=== PATIENT | female | born 1985 | race Caucasian/White ===

== ENCOUNTER 2016-11-10 21:42 | Inpatient (IN) | payer MEDICAID, OTHER ==
[~2016-11-10] VITALS: Ht 160 cm; Wt 52.2 kg
[2016-11-10 23:38] LABS: BASOPHILS % (AUTO) 0.1 % (0.0-2.0); EOSINOPHILS % (AUTO) 0.8 % (1.0-6.0); HEMATOCRIT 39.4 % (36-46); HEMOGLOBIN 12.9 g/dL (12.0-16.0); LYMPHOCYTES # (AUTO) 1.3 K/uL (1.0-4.8); LYMPHOCYTES % (AUTO) 11.2 % (22.0-44.0); MEAN CORPUSCULAR HEMOGLOBIN 30.5 pg (26.0-34.0); MEAN CORPUSCULAR HGB CONC 32.7 G/dL (31.0-37.0); MEAN CORPUSCULAR VOLUME 93 fL (80-100); MONOCYTES # (AUTO) 0.9 K/uL (0.1-1.0); MONOCYTES % (AUTO) 7.6 % (2.0-9.0); NEUTROPHILS # (AUTO) 9.2 K/uL (1.8-7.7); NEUTROPHILS % (AUTO) 80.3 % (40.0-70.0); PLATELET COUNT (AUTO) 363 K/uL (150-450); RED BLOOD CELL COUNT(AUTO) 4.22 MIL/uL (4.00-5.20); RED CELL DISTRIBUTION WIDTH 13.2 % (11.5-14.5); WHITE BLOOD COUNT (AUTO) 11.5 K/uL (4.5-11.0)
[2016-11-10] MEDS ORDERED: DiphenhydrAMINE HCL 50 MG/ML VIAL IM ONE (23:45)
[2016-11-10] MEDS ORDERED: LORazepam 2 MG/ML VIAL IM ONE (23:45)
[2016-11-10] MEDS ORDERED: HALOPERIDOL LACTATE 5 MG/ML VIAL IM ONE (23:45)
[2016-11-10 23:46] LABS: ANION GAP 10 mmol/L (8-16); CALCIUM, TOTAL 8.9 mg/dL (8.8-10.5); CARBON DIOXIDE 29 mmol/L (22-29); CHLORIDE 102 mmol/L (98-107); CREATININE 1.04 mg/dL (0.60-1.30); GLOMERULAR FILTR. RATE CALC 46 mL/min (>60); SODIUM SERUM 141 mmol/L (136-145); UREA NITROGEN, BLOOD 11 mg/dL (7-18)
[2016-11-10 23:51] LABS: ALANINE AMINOTRANSFERASE 34 U/L (12-78); ASPARTATE AMINOTRANSFERASE 36 U/L (15-37); BILIRUBIN,TOTAL 0.8 mg/dL (0.1-1.0); TOTAL PROTEIN, SERUM 7.5 g/dL (6.4-8.2)
[2016-11-11 04:14] LABS: APPEARANCE,URINE CLOUDY (CLEAR); GLUCOSE, URINE (UA) NEGATIVE (NEGATIVE); KETONES,URINE NEGATIVE (NEGATIVE); LEUKOCYTE ESTERASE ,URINE NEGATIVE (NEGATIVE); OCCULT BLOOD,URINE NEGATIVE (NEGATIVE); PROTEIN,URINE TRACE (NEGATIVE)
[2016-11-11 04:17] LABS: ADD UA MICROSCOPIC NO
[2016-11-11 04:45] LABS: CHOL/HDL RATIO 2.3 (3.9-5.7)
[2016-11-11 06:16] VITALS: BP 100/63
[2016-11-11 16:13] VITALS: BP 121/66
[2016-11-11] MEDS ORDERED: *CLINICAL-RX DOSING [ENTER DRUG IN COMMENTS] CLINICAL ONE (17:30)
[2016-11-12 07:05] VITALS: BP 125/78
[2016-11-12] MEDS: BENZTROPINE MESYLATE 0.5 MG TABLET PO SCH ×2 (08:16→16:34)
[2016-11-12] MEDS: HALOPERIDOL 5 MG TABLET PO SCH ×2 (08:16→16:34)
[2016-11-12 08:55] VITALS: BP 114/66
[2016-11-12] MEDS ORDERED: IVERMECTIN 3 MG TABLET PO ONE (12:00)
[2016-11-12 16:34] VITALS: BP 106/62
[2016-11-13 06:25] VITALS: BP 112/65
[2016-11-13] MEDS: BENZTROPINE MESYLATE 0.5 MG TABLET PO SCH ×2 (08:09→16:06)
[2016-11-13] MEDS: HALOPERIDOL 5 MG TABLET PO SCH ×2 (08:09→16:06)
[2016-11-13 08:37] VITALS: BP 118/60
[2016-11-13 16:28] VITALS: BP 134/86
[2016-11-14 06:44] VITALS: BP 118/63
[2016-11-14 08:46] VITALS: BP 118/66
[2016-11-14] MEDS: BENZTROPINE MESYLATE 0.5 MG TABLET PO SCH ×3 (09:00→17:16)
[2016-11-14] MEDS: HALOPERIDOL 5 MG TABLET PO SCH ×3 (09:00→17:16)
[2016-11-14 16:08] VITALS: BP 110/66
[2016-11-15 08:39] VITALS: BP 116/74
[2016-11-15] MEDS: HALOPERIDOL 5 MG TABLET PO SCH ×4 (09:00→17:32)
[2016-11-15] MEDS: BENZTROPINE MESYLATE 0.5 MG TABLET PO SCH ×4 (09:00→17:32)
[2016-11-15] MEDS ORDERED: HALOPERIDOL LACTATE 5 MG/ML VIAL ONE (14:30)
[2016-11-15] MEDS ORDERED: LORazepam 2 MG/ML VIAL ONE (14:30)
[2016-11-15] MEDS ORDERED: DiphenhydrAMINE HCL 50 MG/ML VIAL IM ONE (14:30)
[2016-11-15] MEDS ORDERED: DiphenhydrAMINE HCL 50 MG/ML VIAL ONE (14:30)
[2016-11-15] MEDS ORDERED: HALOPERIDOL LACTATE 5 MG/ML VIAL IM ONE (14:30)
[2016-11-15] MEDS ORDERED: LORazepam 2 MG/ML VIAL IM ONE (14:30)
[2016-11-15 16:00] VITALS: BP 103/78
[2016-11-16 06:49] VITALS: BP 108/67
[2016-11-16 09:00] VITALS: BP 114/70
[2016-11-16] MEDS: BENZTROPINE MESYLATE 0.5 MG TABLET PO SCH ×2 (09:00→17:00)
[2016-11-16] MEDS: HALOPERIDOL 5 MG TABLET PO SCH ×2 (09:00→17:00)
[2016-11-16] MEDS ORDERED: HALOPERIDOL LACTATE 5 MG/ML VIAL IM ONE (15:30)
[2016-11-16] MEDS ORDERED: HALOPERIDOL 5 MG TABLET PO PRN (15:30)
[2016-11-16] MEDS ORDERED: DiphenhydrAMINE HCL 50 MG/ML VIAL IM ONE (15:30)
[2016-11-16] MEDS ORDERED: LORazepam 2 MG/ML VIAL IM ONE (15:30)
[2016-11-16] MEDS ORDERED: DiphenhydrAMINE HCL 50 MG/ML VIAL ONE (15:32)
[2016-11-16] MEDS ORDERED: HALOPERIDOL LACTATE 5 MG/ML VIAL ONE (15:32)
[2016-11-16] MEDS ORDERED: LORazepam 2 MG/ML VIAL ONE (15:32)
[2016-11-16 16:00] VITALS: BP 123/72
[2016-11-17] MEDS: HALOPERIDOL 5 MG TABLET PO SCH (09:00)
[2016-11-17] MEDS: BENZTROPINE MESYLATE 0.5 MG TABLET PO SCH ×2 (09:00→16:19)
[2016-11-17] MEDS ORDERED: RisperiDONE 1 MG TABLET PO ONE (11:45)
[2016-11-17 16:10] VITALS: BP 126/74
[2016-11-17] MEDS: RisperiDONE 1 MG TABLET PO SCH (16:19)
[2016-11-18 03:05] VITALS: BP 126/76
[2016-11-18] MEDS: LORazepam 2 MG TABLET PO PRN ×2 (03:08→18:02)
[2016-11-18] MEDS: RisperiDONE 1 MG TABLET PO SCH ×2 (09:55→17:02)
[2016-11-18] MEDS: BENZTROPINE MESYLATE 0.5 MG TABLET PO SCH ×2 (09:55→17:02)
[2016-11-18 16:00] VITALS: BP 110/68
[2016-11-18] MEDS: NICOTINE 7 MG/24 HOUR PATCH TD SCH (17:02)
[2016-11-19 00:23] VITALS: BP 122/73
[2016-11-19] MEDS: LORazepam 2 MG TABLET PO PRN ×3 (00:33→21:37)
[2016-11-19] MEDS: RisperiDONE 2 MG TABLET PO SCH ×2 (08:16→16:16)
[2016-11-19] MEDS: BENZTROPINE MESYLATE 0.5 MG TABLET PO SCH ×2 (08:16→16:16)
[2016-11-19] MEDS: NICOTINE 7 MG/24 HOUR PATCH TD SCH (08:17)
[2016-11-19 08:36] VITALS: BP 114/66
[2016-11-19 16:00] VITALS: BP 112/70
[2016-11-20 06:19] VITALS: BP 118/73
[2016-11-20 08:45] VITALS: BP 108/61
[2016-11-20] MEDS: BENZTROPINE MESYLATE 0.5 MG TABLET PO SCH (08:57)
[2016-11-20] MEDS: RisperiDONE 2 MG TABLET PO SCH (08:57)
[2016-11-20] MEDS: NICOTINE 7 MG/24 HOUR PATCH TD SCH (08:58)
[2016-11-20] MEDS: LORazepam 2 MG TABLET PO PRN (10:35)
[2016-11-20] MEDS ORDERED: BENZ0.5T6 PO (11:04)
[2016-11-20] MEDS ORDERED: RISP2 PO (11:04)
== END 2016-11-20 13:30 | disposition home or self-care (01) | DRG 750 ==
LOC: EMS 21:46 → EDBD 21:46 → B3A 11-11 04:45 → EMS 11-11 05:01
PROVIDERS: ATTEND Psychiatry & Neurology Psychiatry
DX: F25.9 Schizoaffective disorder, unspecified (principal); F15.20 Other stimulant dependence, uncomplicated; F10.10 Alcohol abuse, uncomplicated; Z59.0 Homelessness; D72.829 Elevated white blood cell count, unspecified; F19.10 Other psychoactive substance abuse, uncomplicated; Y90.0 Blood alcohol level of less than 20 mg/100 ml
CPT/HCPCS: 96372; 99285; G0480; J1200; J1630; J2060